=== PATIENT | female | born 1995 | race Hispanic/Latino ===

== ENCOUNTER 2019-08-06 16:15 | Emergency (ER) | payer BC ==
[2019-08-06 16:25] VITALS: BP 122/54
--- NOTE | 2019-08-06 17:14 | Event Note ---
ED Screening Note Date of service: 08/06/19 Time: 17:12 ED Screening Note: 23 t o f presents for right ankle pain s/p injury today, pain with palpation and difficulty walking This initial assessment/diagnostic orders/clinical plan/treatment(s) is/are subject to change based on patients health status, clinical progression and re- assessment by fellow clinical providers in the ED. Further treatment and workup at subsequent clinical providers discretion. Patient/guardian urged not to elope from the ED as their condition may be serious if not clinically assessed and managed. Initial orders include: ankle xr acc eval
--- NOTE | 2019-08-06 17:54 | XRay Report ---
RIGHT ANKLE 2 VIEWS INDICATION / CLINICAL INFORMATION: pain, injury. COMPARISON: None available. FINDINGS: No fracture, dislocation or soft tissue swelling is seen within the right ankle. Mild degenerative ar throsis is seen within the talonavicular joint. Signer Name: Dionisio Rueda MD Signed: 08/06/2019 5:50 PM Workstation Name: [id number]
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
[2019-08-06] MEDS ORDERED: HYDROcodone/ACETAMINOPHEN 5-325 MG TAB PO ONE (21:11)
[2019-08-06] MEDS ORDERED: IBUPROFEN 800 MG TAB PO ONE (21:19)
== END 2019-08-06 21:38 | disposition home or self-care (01) ==
LOC: ED 16:15
DX: S93.401A Sprain of unspecified ligament of right ankle, initial encounter (principal); D64.9 Anemia, unspecified; Z79.1 Long term (current) use of non-steroidal anti-inflammatories (NSAID); X58.XXXA Exposure to other specified factors, initial encounter; Y93.89 Activity, other specified; Y92.89 Other specified places as the place of occurrence of the external cause; Y99.8 Other external cause status

== ENCOUNTER 2020-12-09 11:06 | Outpatient (CLI) | payer MEDICAID ==
[2020-12-09 12:27] LABS: Hemoglobin 13.5 gm/dl (10.1-14.3); Mean Corpuscular HGB Conc 34 % (30-34); Mean Corpuscular Volume 97 fl (79-97); Platelet Count 310 K/mm3 (140-440); Red Blood Count 4.13 M/mm3 (3.65-5.03); Red Cell Distribution Width 12.9 % (13.2-15.2)
[2020-12-09 12:39] LABS: Alanine Aminotransferase 10 units/L (7-56); Uric Acid 4.5 mg/dL (3.5-7.6)
[2020-12-09 12:45] LABS: Mucus,Urine FEW /HPF
--- NOTE | 2020-12-09 12:48 | Ultrasound Report ---
Limited OB Ultrasound Biophysical profile ultrasound HISTORY: elevated b/p low fht's in office. TECHNIQUE: Grayscale and color imaging performed. COMPARISON: None FINDINGS: There is a single viable intrauterine gestation with cephalic presentation and heart rate o f 132 bpm. The ALMA is 13.5 cm. On biophysical profile, the fetus received a score of 2 out of 2 for ALMA, tone, movement, and breathi ng. Total score was 8 out of 8. IMPRESSION: Single viable intrauterine gestation as outlined above with normal BPP. Signer Name: Frederic Bolton MD Signed: 12/09/2020 12:44 PM Workstation Name: [id number]
[2020-12-09 12:53] LABS: Bilirubin,Urine NEG (Negative); Blood,Urine NEG (Negative); Color,Urine Colorless (Yellow); Protein,Urine <15 mg/dL mg/dL (Negative); Urobilinogen,Urine < 2.0 mg/dL (<2.0)
[2020-12-09 13:19] VITALS: BP 128/60
== END 2020-12-09 13:38 | disposition home or self-care (01) ==
LOC: TRG 11:06 → APU 11:07 → TRG 13:38
DX: Z34.93 Encounter for supervision of normal pregnancy, unspecified, third trimester (principal); Z3A.38 38 weeks gestation of pregnancy
CPT/HCPCS: 36415; 59025; 76815; 76819; 81001; 82565; 83615; 84450; 84460; 84550; 85027

== ENCOUNTER 2020-12-11 10:01 | Inpatient (IN) | payer MEDICAID ==
[2020-12-11] MEDS ORDERED: OXYTOCIN 10 UNIT/1 ML INJ IM ONE (10:25)
[2020-12-11] MEDS ORDERED: OXYTOCIN DRIP 30,000 MILLIUNITS/500 ML BAG IV ONE (10:25)
[2020-12-11] MEDS ORDERED: LIDOCAINE (2%) 20 MG/1 ML VIAL 20 ML MDV INFILTRATI ONE ×3 (10:28→10:47)
[2020-12-11] MEDS ORDERED: fentaNYL 100 MCG/2 ML INJ ONE (10:29)
[2020-12-11] MEDS ORDERED: miSOPROStol 200 MCG TAB ONE (10:34)
[2020-12-11] MEDS ORDERED: METHYLERGONOVINE MALEATE 0.2 MG/ML VIAL IM ONE ×2 (10:35→10:43)
[2020-12-11] MEDS ORDERED: miSOPROStol 200 MCG TAB PR ONE (10:35)
[2020-12-11] MEDS ORDERED: fentaNYL 100 MCG/2 ML INJ IV PRN (10:47)
[2020-12-11] MEDS ORDERED: ePHEDrine SULFATE 50 MG/1 ML INJ IV PRN (10:47)
[2020-12-11] MEDS ORDERED: ACETAMINOPHEN 325 MG TAB PO PRN (10:47)
[2020-12-11] MEDS ORDERED: ONDANSETRON 4 MG/2 ML INJ IV PRN ×2 (10:47→10:48)
[2020-12-11] MEDS ORDERED: NalbUPHINE 10 MG/1 ML INJ IV PRN (10:47)
[2020-12-11] MEDS ORDERED: TERBUTALINE 1 MG/1 ML INJ SUB-Q PRN (10:47)
[2020-12-11] MEDS ORDERED: WITCH HAZEL/ GLYCERIN PAD TP PRN (10:48)
[2020-12-11] MEDS ORDERED: LANOLIN/ZINC/DIMETHICONE (LANSINOH) 7 GM TP PRN (10:48)
[2020-12-11] MEDS ORDERED: diphenhydrAMINE 25 MG CAP PO PRN (10:48)
[2020-12-11] MEDS ORDERED: PROMETHAZINE 25 MG TAB PO PRN (10:48)
[2020-12-11] MEDS ORDERED: PROMETHAZINE 25 MG RECT SUPP PR PRN (10:48)
--- NOTE | 2020-12-11 10:51 | History and Physical Report ---
History of Present Illness Date of examination: 12/11/20 Date of admission: 12/11/20 Chief complaint: ctx and pelvic pressure History of present illness: at 39.1wks by dates. pt came via car with her , who remained outside with her other 2 children. Pt c/o painful ctx and pelvic pressure. Denies vag bleeding or leakage of fluid. Denies headache. Pt admits to movement. Nurse called me stating pt is 9cm and ready to push. care at [facility] and no prenatals available. Past History Past Medical History: no pertinent history, other (obesity) Past Surgical History: no surgical history - Obstetrical History Expected Date of Delivery: 12/17/20 Actual Gestation: 39 Week(s) 1 Day(s) : 3 Hx # Term Pregnancies: 2 Number of Living Children: 2 Medications and Allergies Allergies Allergy/AdvReac Type Severity Reaction Status Date / Time No Known Allergies Allergy Verified 12/09/20 11:26 Home Medications Medication Instructions Recorded Confirmed Last Taken Type Ibuprofen [Motrin] 600 mg PO Q8H PRN #12 tablet 08/06/19 12/11/20 Unknown Rx Review of Systems All systems: negative (painful ctx) - Vital Signs Vital signs: Vital Signs Pulse Pulse Ox 60 100 12/11/20 10:07 12/11/20 10:07 Temp Pulse Resp BP Pulse Ox 103 H 16 122/60 96 12/11/20 10:48 12/11/20 10:33 12/11/20 10:48 12/11/20 10:47 - Physical Exam Breasts: Positive: deferred Cardiovascular: Regular rate Lungs: Positive: Normal air movement Genitourinary (Female): Positive: normal external genitalia Vulva: both: normal Vagina: Positive: normal moisture Uterus: Positive: enlarged (non-tender gravid) Extremities: Positive: normal - Obstetrical FHR: category 1 Uterine Contraction Monitor Mode: External Cervical Dilatation: 9 (per triage nurse) Cervical Effacement Percentage: 100 Uterine Contraction Pattern: Regular Uterine Contraction Intensity: Moderate Results Result Diagrams: 12/11/20 11:19 All other labs normal. Assessment and Plan term with precipitous delivery. please see delivery note; unknown GBS status 1. will check walk in labs until records are available 2. plan of care discussed with pt. All questions encouraged and answered
--- NOTE | 2020-12-11 10:52 | Procedure Note ---
OB Delivery Note - Delivery Date of Delivery: 12/11/20 Surgeon: CARMEN MONTOYA Estimated blood loss: other (417cc) - Vaginal Delivery presentation: vertex Delivery position: OA Intrapartum events: precipitous labor- <3hr, uterine atony Delivery induction: none Delivery monitor: external FHT Route of delivery: Delivery placenta: spontaneous Episiotomy: none Delivery laceration: 2nd degree Delivery repair: chromic (running locked suture) Anesthesia: local Delivery comments: Precipitous vaginal delivery with nurse Monae present and then Dr. Wan. Delivery uncomplicated per their report of viable male infant. Placenta delivered spontaneously. Pt sustained 2nd vaginal laceration and same repaired with running locked 2-0 chromic running locked suture and local anesthetic 2% Lidocaine. Pt had uterine atony and was given IM pitocin since IV positional and not effective. Pt also given cytote 800mcg per rectum and methergine 0.2mg IM. Pt sustained no cervical laceration when vagina evaluated. Bimanual massage done multiple times. Mom and baby stable and [facility] team present for delivery. EBL measured was 417cc per nurse Monae. - A at 1 minute: 8 at 5 minutes: 9 Gender: Male (3448g)
[2020-12-11] MEDS ORDERED: OXYTOCIN DRIP 30 UNITS/500 ML BAG IV SCH ×3 (11:00)
[2020-12-11] MEDS ORDERED: LACTATED RINGERS 1,000 ML IV SCH (11:00)
[2020-12-11 11:33] LABS: Hematocrit 42.1 % (30.3-42.9); Hemoglobin 14.8 gm/dl (10.1-14.3); Mean Corpuscular HGB Conc 35 % (30-34); Mean Corpuscular Volume 97 fl (79-97); Platelet Count 288 K/mm3 (140-440); Red Blood Count 4.33 M/mm3 (3.65-5.03); Red Cell Distribution Width 12.9 % (13.2-15.2)
[2020-12-11] MEDS: IBUPROFEN 600 MG TAB PO SCH ×3 (13:30→23:00)
[2020-12-11] MEDS ORDERED: MAGNESIUM HYDROXIDE (MOM) ORAL LIQD UDC PO PRN (22:00)
[2020-12-11] MEDS ORDERED: MINERAL OIL 30 ML ORAL LIQD PO PRN (22:00)
[2020-12-12 01:15] LABS: Hematocrit 36.8 % (30.3-42.9); Hemoglobin 12.6 gm/dl (10.1-14.3)
[2020-12-12] MEDS: IBUPROFEN 600 MG TAB PO SCH ×4 (04:23→23:00)
[2020-12-12] MEDS: PRENATAL VIT27-FE FUMARATE-FOLIC ACID VIT TAB PO SCH (10:14)
--- NOTE | 2020-12-12 12:53 | Progress Note ---
Assessment and Plan A: day 1 S/P . P: Continue routine care. Anticipate discharge home tomorrow. Subjective - Subjective Date of service: 12/12/20 Principal diagnosis: day 1 S/P Patient reports: appetite normal, voiding normally, pain well controlled, flatus, ambulating normally, no dizzy ambulation, no nauseated [place]: doing well Objective - Vital Signs Latest vital signs: Vital Signs Temp Pulse Resp BP BP Pulse Ox 12/11/20 23:59 98.9 F 57 L 20 107/60 100 12/11/20 20:17 98.2 F 67 20 113/69 99 12/11/20 16:15 98.8 F 80 18 107/51 99 12/11/20 13:30 98.4 F 12/11/20 13:00 100.3 F H 79 18 99/48 97 Intake and Output 12/11/20 12/12/20 12/12/20 23:59 07:59 15:59 Intake Total 240 Output Total 800 600 Balance -560 -600 Intake: Oral 240 Output: Urine 800 600 Void 800 600 Other: Total, Intake Amount 240 Total, Output Amount 800 600 # Voids Void 1 3 - Exam Cardiovascular: Present: Regular rate Lungs: Present: Clear to auscultation Abdomen: Present: normal appearance, soft, normal bowel sounds. Absent: distention, tenderness, guarding, rigidity Uterus: Present: normal, firm, fundal height below umbilicus. Absent: bogginess, tenderness Extremities: Present: normal. Absent: tenderness, edema
[2020-12-12 13:39] LABS: Basophils # (Auto) 0.1 K/mm3 (0.0-0.1); Basophils % (Auto) 0.5 % (0.0-1.8); Eosinophils # (Auto) 0.1 K/mm3 (0.0-0.4); Eosinophils % (Auto) 0.8 % (0.0-4.3); Hematocrit 38.9 % (30.3-42.9); Hemoglobin 13.4 gm/dl (10.1-14.3); Lymphocytes # (Auto) 2.6 K/mm3 (1.2-5.4); Lymphocytes % (Auto) 18.4 % (13.4-35.0); Mean Corpuscular HGB Conc 35 % (30-34); Mean Corpuscular Volume 100 fl (79-97); Monocytes # (Auto) 0.9 K/mm3 (0.0-0.8); Monocytes % (Auto) 6.5 % (0.0-7.3); Red Cell Distribution Width 12.9 % (13.2-15.2)
[2020-12-12 13:48] LABS: Platelet Count 225 K/mm3 (140-440)
[2020-12-12 17:10] LABS: Bilirubin,Urine NEG (Negative); Blood,Urine SM (Negative); Color,Urine Straw (Yellow); Protein,Urine <15 mg/dL mg/dL (Negative); Urobilinogen,Urine < 2.0 mg/dL (<2.0)
[2020-12-13] MEDS: IBUPROFEN 600 MG TAB PO SCH (06:24)
[2020-12-13] MEDS ORDERED: HYDROcodone/ACETAMINOPHEN 5-325 MG TAB PO PRN (06:38)
[2020-12-13] MEDS: PRENATAL VIT27-FE FUMARATE-FOLIC ACID VIT TAB PO SCH (10:59)
--- NOTE | 2020-12-13 11:55 | Discharge Summary ---
Providers - Providers Date of Admission: 12/11/20 10:02 Date of discharge: 12/13/20 Attending physician: CARMEN MONTOYA Primary care physician: CARMEN MONTOYA Hospitalization Delivery: Laceration: 2nd degree Other procedures: none complications: none Discharge diagnosis: IUP at term delivered Hospital course: BENIGN. Condition at discharge: Good Disposition: DC-01 TO HOME OR SELFCARE - Discharge Diagnoses (1) (normal spontaneous vaginal delivery) Status: Acute Plan - Provider Discharge Summary Activity: routine Diet: routine Instructions: routine Additional instructions: [] Smoking cessation referral if applicable(refer to patient education folder for contact #) [] Refer to [facility]'s [facility] Booklet Call your doctor immediately for: * Fever > 100.5 * Heavy vaginal bleeding ( >1 pad per hour) * Severe persistent headache * Shortness of breath * Reddened, hot, painful area to leg or breast * Drainage or odor from incision. * Keep incision clean and dry at all times and follow doctor's instructions regarding bathing/showering - Follow up plan
[2020-12-13 13:43] VITALS: BP 121/62
== END 2020-12-13 13:43 | disposition home or self-care (01) | DRG 775 ==
LOC: TRG 10:01 → LD 10:02 → TRG 10:48 → OB 12:46
PROVIDERS: ADMIT Obstetrics & Gynecology; ATTEND Obstetrics & Gynecology
PROC: 10E0XZZ Delivery of Products of Conception, External Approach (ICD-10-PCS; principal; 2020-12-11)
PROC: 0KQM0ZZ Repair Perineum Muscle, Open Approach (ICD-10-PCS; 2020-12-11)
DX: O62.3 Precipitate labor (principal); Z3A.39 39 weeks gestation of pregnancy; Z37.0 Single live birth; Z20.822 Contact with and (suspected) exposure to COVID-19; O62.2 Other uterine inertia; O70.1 Second degree perineal laceration during delivery
CPT/HCPCS: 36415; 59025; 76815; 76819; 81001; 82565; 82962; 83615; 84450; 84460; 84550; 85014; 85018; 85025; 85027; 86706; 86850; 86900; 86901; 96360; 96361; 96365; 96372; G0378; J2210; J2590; J3010; U0003